=== PATIENT | female | born 1990 | race Two or more races ===

== ENCOUNTER 2023-02-02 19:36 | Observation (INO) | payer MEDICAID, OTHER ==
[~2023-02-02] VITALS: Ht 165.1 cm; Wt 85.7 kg
[2023-02-02] MEDS ORDERED: INSULIN LISPRO (HUMAN) 100 UNITS/ML ML SC ONE (21:30)
[2023-02-02] MEDS ORDERED: INSULIN NPH Isophane (HUMAN) 1unit/0.01ml Susp(100units/ml) SC ONE (21:30)
== END 2023-02-02 21:39 | disposition home or self-care (01) ==
LOC: LDRP 19:36
PROVIDERS: ADMIT Obstetrics & Gynecology; ATTEND Obstetrics & Gynecology
DX: O36.8120 Decreased fetal movements, second trimester, not applicable or unspecified (principal); O62.9 Abnormality of forces of labor, unspecified; O26.892 Other specified pregnancy related conditions, second trimester; R51.9 Headache, unspecified; Z3A.25 25 weeks gestation of pregnancy; Z79.899 Other long term (current) drug therapy
CPT/HCPCS: 59025; 76815; 81002; 82948; 82962; 94760; G0378